=== PATIENT | female | born 1950 | race Caucasian/White ===

== ENCOUNTER → 2017-11-08 | Outpatient (CLI) | payer MEDICARE | LOC: M WUC 11:30 | DX: S90.852A Superficial foreign body, left foot, initial encounter (principal); W18.30XA Fall on same level, unspecified, initial encounter; Y92.009 Unspecified place in unspecified non-institutional (private) residence as the place of occurrence of the external cause | CPT/HCPCS: 73630 ==

== ENCOUNTER 2019-06-23 08:51 | Day surgery (SDC) | payer MEDICARE ==
[~2019-06-23] VITALS: Ht 167.6 cm; Wt 85.7 kg
[~2019-06-23 08:51] MED LIST: AMLO5TAB6 PO; CHLO125TA PO; LIDOCAINE 2% INJ 100 MG/5 ML SDV (FOR ANES.) As Ordered ONE; METO1TAB7 PO; NS 1,000 ML IV ONE; PROPOFOL 200 MG/20 ML VIAL As Ordered ONE
--- NOTE | 2019-06-23 10:45 | ROOR ---
Patient Name: Jacque Crum Procedure Date: 06/23/2019 10:25 AM Date of : 1950 Age: 68 Room: [facility] Gender: Female Note Status: Finalized Procedure: Colonoscopy Indications: High risk colon cancer surveillance: Personal history of colonic polyps, Last colonoscopy: December 2013. (history of low grade dysplastic rectosigmoid polyp in 2009) Providers: Kong VARGHESE MD Referring MD: KONG ELIAS MD Requesting Provider: Medicines: Monitored Anesthesia Care Complications: No immediate complications. Procedure: Pre-Anesthesia Assessment: - The heart rate, respiratory rate, oxygen saturations, blood pressure, adequacy of pulmonary ventilation, and response to care were monitored throughout the procedure. The Colonoscope was introduced through the anus and advanced to the terminal ileum, with identification of the appendiceal orifice and IC valve. The colonoscopy was somewhat difficult due to inadequate bowel prep. (clenpiq). The patient tolerated the procedure well. The quality of the bowel preparation was brought up to a suboptimal/fair level after extensive lavage. Findings: The perianal and digital rectal examinations were normal. (EXAM: Complete, PREP: Suboptimal) Internal hemorrhoids were found during retroflexion. The hemorrhoids were moderate. Impression: - (EXAM: Complete, PREP: Suboptimal) - Internal hemorrhoids. - No specimens collected. Recommendation: - Repeat colonoscopy 1-2 years because the bowel preparation was suboptimal and for History of dysplastic polyp in 2009. - (Rec alternate colon preparation for next colonoscopy) Kong Varghese MD Kong VARGHESE MD 06/23/2019 10:45:14 AM Electronically signed by Kong VARGHESE MD Number of Addenda: 0 Note Initiated On: 06/23/2019 10:25 AM Estimated Blood Loss: Estimated blood loss: none.
[2019-06-23 11:12] VITALS: BP 161/84
== END 2019-06-23 11:11 | disposition home or self-care (01) ==
LOC: M OPP 08:51
PROVIDERS: ATTEND Internal Medicine Gastroenterology
DX: Z12.11 Encounter for screening for malignant neoplasm of colon (principal); Z86.010 Personal history of colon polyps; K64.8 Other hemorrhoids; Z79.82 Long term (current) use of aspirin; Z79.899 Other long term (current) drug therapy; Z80.3 Family history of malignant neoplasm of breast; Z91.048 Other nonmedicinal substance allergy status; Z92.3 Personal history of irradiation

== ENCOUNTER → 2020-03-26 | Outpatient (REF) | payer MEDICARE ==
[~2020-03-26] MED LIST changes: +AMLO1TAB24 PO; -AMLO5TAB6 PO; -LIDOCAINE 2% INJ 100 MG/5 ML SDV (FOR ANES.) As Ordered ONE; -NS 1,000 ML IV ONE; -PROPOFOL 200 MG/20 ML VIAL As Ordered ONE
[2020-03-26 17:25] LABS: APPEARANCE, URINE CLEAR (CLEAR); BACTERIA, URINE AUTO NEGATIVE (NEGATIVE); BILIRUBIN, URINE AUTO NEGATIVE (NEGATIVE); BLOOD, URINE BLOOD NEGATIVE (NEGATIVE); COLOR, URINE YELLOW (YELLOW); GLUCOSE, URINE (UA) AUTO NEGATIVE (NEGATIVE); KETONE, URINE AUTO NEGATIVE (NEGATIVE); LEUKOCYTE ESTERASE, URINE AUTO NEGATIVE (NEGATIVE); NITRITE, URINE AUTO NEGATIVE (NEGATIVE); PROTEIN, URINE AUTO 1+ mg/dL (NEGATIVE); RBC, URINE AUTO 0 /HPF (0-3); SPECIFIC GRAVITY URINE AUTO 1.008 (1.002-1.035); SQUAMOUS EPITHELIAL CELL UR AU 0 /HPF (0-6); UROBILINOGEN, URINE AUTO 0.2 mg/dL (0.0-2.0); WBC, URINE AUTO 1 /HPF (0-3)
== END ==
LOC: M LAB REF 16:53
PROVIDERS: ATTEND Obstetrics & Gynecology
DX: N32.81 Overactive bladder (principal); N39.41 Urge incontinence

== ENCOUNTER → 2025-01-25 | Outpatient (CLI) | payer MEDICARE | LOC: M WUC 11:36 | PROVIDERS: ATTEND Nurse Practitioner Family | DX: M79.671 Pain in right foot (principal) ==

== ENCOUNTER → 2025-03-07 | Outpatient (CLI) | payer MEDICARE ==
[2025-03-07 13:14] LABS: PLATELET COUNT, AUTOMATED 234 10^3/uL (150-450)
[2025-03-07 13:20] LABS: ERYTHROCYTE SEDIMENTATION RATE 58 mm/hr (0-30)
[2025-03-07 13:28] LABS: INR 0.88
[2025-03-07 13:47] LABS: ALT/SGPT 32.0 U/L (7.0-40); AST/SGOT 21.0 U/L (<34); CALCIUM LEVEL 10.6 MG/DL (8.3-10.6); CARBON DIOXIDE LEVEL 25.0 MMOL/L (20-31); CHLORIDE LEVEL 105.0 MMOL/L (98-107); CREATININE FOR GFR 0.94 MG/DL (0.55-1.30); GLOMERULAR FILTRATION RATE 62.9 (>39); POTASSIUM SERUM 4.4 MMOL/L (3.5-5.1); SODIUM LEVEL 144.0 MMOL/L (136-145)
== END ==
LOC: M RAD 12:13
PROVIDERS: ATTEND Orthopaedic Surgery
DX: Z01.818 Encounter for other preprocedural examination (principal); M16.12 Unilateral primary osteoarthritis, left hip; Z79.01 Long term (current) use of anticoagulants

== ENCOUNTER 2025-05-12 11:30 | Emergency (ER) | payer MEDICARE ==
[~2025-05-12] VITALS: Ht 165.1 cm; Wt 85.5 kg
[2025-05-12] MEDS ORDERED: XALA0.007 OU (11:50)
[2025-05-12] MEDS ORDERED: LOSA100T46 PO (11:50)
[2025-05-12] MEDS ORDERED: ASPI81TA26 PO (11:50)
[2025-05-12 12:22] LABS: BASO # 0.1 10^3/uL (0.0-0.2); BASO % 1.1 % (0.0-1.0); EOS # 0.3 10^3/uL (0.0-0.5); EOS % 3.8 % (0.0-3.0); LYMPH # 1.5 10^3/uL (1.5-5.0); LYMPH % 18.7 % (24.0-44.0); MONO # 0.7 10^3/uL (0.0-0.8); MONO % 8.4 % (2.0-8.0); NEUTROPHILS # 5.4 10^3/uL (1.5-8.5); NEUTROPHILS % 67.1 % (36.0-66.0); PLATELET COUNT, AUTOMATED 404 10^3/uL (150-450)
[2025-05-12 12:41] LABS: ALT/SGPT 441 U/L (7.0-40); AST/SGOT 164 U/L (<34); CALCIUM LEVEL 9.6 MG/DL (8.3-10.6); CARBON DIOXIDE LEVEL 26 MMOL/L (20-31); CHLORIDE LEVEL 104 MMOL/L (98-107); CREATININE FOR GFR 0.88 MG/DL (0.55-1.30); GLOMERULAR FILTRATION RATE 68.1 (>39); POTASSIUM SERUM 4.4 MMOL/L (3.5-5.1); SODIUM LEVEL 139 MMOL/L (136-145)
[2025-05-12 12:53] LABS: INR 0.84
[2025-05-12 13:40] LABS: HEPATITIS C VIRUS ABY INDEX < 0.02 INDEX (<0.8)
[2025-05-12] MEDS ORDERED: HOME MED LIST COMPLETE! XX SCH (16:05)
[2025-05-12] MEDS ORDERED: ISOVUE-370 76% 100 ML VIAL As Ordered ONE (18:20)
[2025-05-13] MEDS: PIPERACILLIN/TAZOBACTAM SOD 3.375 GM in DEXTROSE 5% (D5W) ADV/MINI-BAG 50 ML IV ONE (01:46)
[2025-05-13] MEDS: KETOROLAC 30 MG/ML 1 ML VIAL IV ONE (02:01)
[2025-05-13] MEDS: ONDANSETRON 4MG/2ML VIAL IV ONE (08:59)
[2025-05-13 09:03] VITALS: BP 189/101; TEMP 98.2; O2SAT 96
== END 2025-05-13 09:05 | disposition short-term general hospital (02) ==
LOC: M ED 11:30
DX: K83.09 Other cholangitis (principal); E11.9 Type 2 diabetes mellitus without complications; I10 Essential (primary) hypertension; E78.5 Hyperlipidemia, unspecified; M43.17 Spondylolisthesis, lumbosacral region; M25.78 Osteophyte, vertebrae; C50.919 Malignant neoplasm of unspecified site of unspecified female breast; F10.10 Alcohol abuse, uncomplicated; R16.0 Hepatomegaly, not elsewhere classified; Z96.642 Presence of left artificial hip joint; Z91.048 Other nonmedicinal substance allergy status; Z79.82 Long term (current) use of aspirin; Z79.899 Other long term (current) drug therapy
CPT/HCPCS: 74178; 76705; 80048; 80074; 80076; 83690; 85025; 85610; 96365; 96366; 96375; 99285; J1885; J2405; J2543; Q9967